=== PATIENT | male | born 1970 | race Two or more races ===

== ENCOUNTER 2017-08-04 07:28 | Emergency (ER) | payer OTHER ==
[~2017-08-04] VITALS: Ht 177.8 cm; Wt 113.4 kg
[2017-08-04 07:33] VITALS: BP 125/75
[2017-08-04] MEDS ORDERED: LORazepam 2MG/ML-1ML VIAL IM ONE (08:00)
[2017-08-04] MEDS ORDERED: ONDANSETRON HCL 4 MG/2 ML VIAL IM ONE (08:15)
== END 2017-08-04 08:43 | disposition home or self-care (01) ==
LOC: ER 07:28
DX: F41.9 Anxiety disorder, unspecified (principal)
CPT/HCPCS: 96372; 99284; J2060; J2405